=== PATIENT | male | born 1945 | race Caucasian/White ===

== ENCOUNTER 2024-12-15 17:52 | Emergency (ER) | payer MEDICARE, MEDICAID ==
[~2024-12-15] VITALS: Ht 170.2 cm; Wt 80.0 kg
[2024-12-15 17:54] VITALS: TEMP 37; O2SAT 100
[2024-12-15 18:43] VITALS: BP 149/65; PULSE 63; RESP 18; O2SAT 95
[2024-12-15] MEDS ORDERED: HYDR453.3 TP (18:44)
[2024-12-15] MEDS ORDERED: VALA10002 MT (18:45)
== END 2024-12-15 22:14 | disposition home or self-care (01) ==
LOC: ER 17:54
DX: S09.90XA Unspecified injury of head, initial encounter (principal); E11.9 Type 2 diabetes mellitus without complications; I51.9 Heart disease, unspecified; L30.4 Erythema intertrigo; B02.9 Zoster without complications; Z98.890 Other specified postprocedural states; Z86.73 Personal history of transient ischemic attack (TIA), and cerebral infarction without residual deficits; W05.0XXA Fall from non-moving wheelchair, initial encounter; Y93.89 Activity, other specified; Y92.89 Other specified places as the place of occurrence of the external cause; Y99.8 Other external cause status
CPT/HCPCS: 99284; A4606

== ENCOUNTER 2025-04-10 11:10 | Emergency (ER) | payer MEDICARE, MEDICAID ==
[~2025-04-10] VITALS: Ht 167.6 cm; Wt 90.0 kg
[~2025-04-10 11:10] MED LIST: HYDR453.3 TP; VALA10002 MT
[2025-04-10 11:14] VITALS: BP 106/60; PULSE 56; RESP 16; TEMP 36.8; O2SAT 99
== END 2025-04-10 13:03 | disposition left against medical advice (07) ==
LOC: ER 11:12
DX: L29.89 Other pruritus (principal); Z53.21 Procedure and treatment not carried out due to patient leaving prior to being seen by health care provider